=== PATIENT | male | born 1955 | race Two or more races ===

== ENCOUNTER 2018-04-13 15:00 | Emergency (ER) | payer MEDICAID, OTHER ==
[2018-04-13] MEDS ORDERED: ONDANSETRON DISINTEGRATING 4 MG TAB PO ONE (15:31)
[2018-04-13] MEDS ORDERED: MECLIZINE HCL 25 MG TAB PO ONE (15:31)
--- NOTE | 2018-04-13 15:35 | EDPHY ---
H & P Time Seen by Provider: 04/13/18 15:12 HPI/ROS: CHIEF COMPLAINT: Dizziness HISTORY OF PRESENT ILLNESS: Patient presents with symptoms since this past Thursday. Started with mild headache which is occipital associated with dizziness which is associated with nauseous. He felt like it was worse with movement of his head and describes the sensation like his"head is spinning. "Presents today with continued symptoms but has not been able to get better. No falling at home, no ear symptoms, no tenderness or hearing loss, no neck pain. Symptoms mild to moderate. REVIEW OF SYSTEMS: Eye: no change in vision ENT: no sore throat or earache Cardiac: no chest pain or syncope Pulmonary: no cough or SOB Abdomen: no vomiting, diarrhea, abdominal pain Musculoskeletal: no back pain or neck pain Skin: no rash Neuro: HPI Constitutional: no fever : no urinary symptoms A comprehensive 10 point review of systems is otherwise negative aside from elements mentioned in the history of present illness. PAST MEDICAL HISTORY: Diabetes, glucose today 167 Social history: Here with daughter, interview with lang interpreter personally present in the room. General Appearance: Alert and conversant, cooperative. Eyes: No scleral icterus. Pupils equal and reactive extraocular motion intact and nystagmus when looking to the right which replicates the patient's symptoms. ENT, Mouth: Normal mucous membranes. Respiratory: Normal respiratory effort, breath sounds equal, lungs are clear to auscultation. Cardiovascular: Regular rate and rhythm. Gastrointestinal: Abdomen is soft and non tender. Neurological: Alert, face symmetric, normal motor and sensory in extremities. [id number] normal bilaterally, fluent speech, no pronator drift. Skin: Warm and dry, no rashes. Musculoskeletal: No peripheral edema. Psychiatric: Not agitated. Emergency Department course/MDM: Noncontrast head CT for dizziness associated with headache and being off balance. Zofran ODT and oral meclizine, more likely to be peripheral vertigo than central. 1554: Negative head CT per Isu[facility]. Results discussed, CT negative, road test stable gait and okay for discharge. Smoking Status: Former smoker Constitutional: Initial Vital Signs Temperature (C) 36.4 C 04/13/18 15:05 Heart Rate 69 04/13/18 15:05 Respiratory Rate 18 04/13/18 15:05 Blood Pressure 143/74 H 04/13/18 15:05 O2 Sat (%) 94 04/13/18 15:05 O2 Delivery Mode Room Air Allergies/Adverse Reactions: No Known Allergies Allergy (Unverified 04/13/18 15:09) Home Medications: Medication Instructions Recorded Atorvastatin Calcium 04/13/18 Lisinopril 04/13/18 Meclizine HCl [Meclizine HCl 25 mg 25 mg PO Q6 PRN #20 tab 04/13/18 (RX,OTC)] Metformin HCl 04/13/18 Ondansetron Odt [Zofran Odt] 4 mg PO Q4PRN #6 tab 04/13/18 Medical Decision Making - Diagnostics Imaging Results: Imaging Impressions Head CT 04/13/18 15:31 Impression: 1. Normal CT brain without contrast. 2. No sinusitis. 3.Consider MRI of the brain, if there is continued clinical concern. Findings discussed with Emergency Department physician, TANVI LUU at 15:52 hour, 04/13/2018. Final report concurs with initial preliminary interpretation. Differential Diagnosis: Differential diagnosis considered for dizziness including but not limited to peripheral and central causes of vertigo, orthostatic causes including dehydration, and blood loss. - Data Points Medications Given: Discontinued Medications Meclizine HCl (Meclizine Hcl) 25 mg PO EDNOW ONE Stop: 04/13/18 15:32 Last Admin: 04/13/18 15:37 Dose: 25 mg Ondansetron HCl (Zofran Odt) 4 mg PO EDNOW ONE Stop: 04/13/18 15:32 Last Admin: 04/13/18 15:37 Dose: 4 mg Departure - Departure Disposition: Home, Routine, Self-Care Clinical Impression: Vertigo Condition: Good Instructions: Vertigo (ED) Referrals: [facility] [Outside] - As per Instructions Prescriptions: Meclizine HCl [Meclizine HCl 25 mg (RX,OTC)] 25 mg PO Q6 PRN #20 tab PRN Reason: Dizziness Ondansetron Odt [Zofran Odt] 4 mg PO Q4PRN #6 tab Print Language: Slovenian
[2018-04-13 17:19] VITALS: BP 133/85
== END 2018-04-13 17:16 | disposition home or self-care (01) ==
DX: R42 Dizziness and giddiness (principal); E11.9 Type 2 diabetes mellitus without complications; Z79.84 Long term (current) use of oral hypoglycemic drugs; Z87.891 Personal history of nicotine dependence

== ENCOUNTER 2019-03-24 11:21 | Emergency (ER) | payer SELFPAY ==
[2019-03-24] MEDS ORDERED: ACETAMINOPHEN 500 MG TAB PO ONE (13:00)
[2019-03-24] MEDS ORDERED: IBUPROFEN 200 MG TAB PO ONE (13:19)
== END 2019-03-24 13:51 | disposition home or self-care (01) ==
DX: M79.652 Pain in left thigh (principal)